=== PATIENT | male | born 1995 | race Caucasian/White ===

== ENCOUNTER 2017-10-19 16:10 | Emergency (ER) | payer MEDICAID, OTHER ==
[~2017-10-19] VITALS: Ht 175.3 cm; Wt 73.6 kg
[~2017-10-19 16:10] MED LIST: METH27 PO; RISP0.5T20 PO; SERO150T PO
[2017-10-19 16:24] VITALS: BP 133/76; PULSE 69; RESP 16; TEMP 98.6; O2SAT 99
--- NOTE | 2017-10-19 16:40 | PD ---
HPI Chief Complaint: Injury Time Seen by Provider: 16:35 Travel History International Travel<30 days: No Contact w/Intl Traveler<30days: No Traveled to known affect area: No History of Present Illness HPI 22-year-old male complains of right hand pain. Patient states that he punched a piece of wood yesterday. Patient states that no foreign body is his right hand. Patient denies any other injury. Patient states the pain is sharp pain localized to the base of the long finger and distal aspect of the right third metacarpal area. Patient denies any pain radiation. Patient states that the pain is worse with movement of the right third finger. Patient states that he is up-to-date with TD booster. On a scale of 1-10 the pain is a 7. Patient has history of fractured right hand fifth metacarpal in the past. PFSH Past Medical History ADD: Yes ADHD: Yes (PT AND SIBLINGS) Arthritis: Yes (HOSPITALIZED A COUPLE OF MONTHS AT 5 YO) Asthma: Yes Bipolar Disorder: Yes Depression: Yes Cancer: No Cardiovascular Problems: Yes (RHEUMATIC FEVER AT 6 YEARS OLD) Developmental Delay: No Diabetes: No Diminished Hearing: No Headaches: Yes (OCCASIONAL HEADACHES) Psychiatric: Yes Immunizations Current: Yes Migraines: No Seizures: No Thyroid Disease: No Ulcer: No Past Surgical History Appendectomy: No Section: No Cholecystectomy: No Other Surgery: Yes (Fluid in his heart. ) Social History Alcohol Use: Yes (TRIED--LAST TIME 4 MONTHS AGO) Tobacco Use: No Substance Use: No Allergies-Medications (Allergen,Severity, Reaction): Coded Allergies: diphenhydramine (Unverified Allergy, Severe, "ANTIHISTAMINES" PER PATIENT , 10/19/17) red dye (Unverified Allergy, Severe, 10/19/17) Reported Meds & Prescriptions Reported Meds & Active Scripts Active Review of Systems General / Constitutional: No: Fever Eyes: No: Visual changes HENT: No: Headaches Cardiovascular: No: Chest Pain or Discomfort Respiratory: No: Shortness of Breath Gastrointestinal: No: Abdominal Pain Genitourinary: No: Dysuria Musculoskeletal: Positive: Pain Skin: No Rash Neurologic: No: Weakness Psychiatric: No: Depression Endocrine: No: Polydipsia Hematologic/Lymphatic: No: Easy Bruising Physical Exam Narrative GENERAL: Well-nourished, well-developed patient. SKIN: Focused skin assessment warm/dry. HEAD: Normocephalic. EYES: No scleral icterus. No injection or drainage. NECK: Supple, trachea midline. No JVD or lymphadenopathy. CARDIOVASCULAR: Regular rate and rhythm without murmurs, gallops, or rubs. RESPIRATORY: Breath sounds equal bilaterally. No accessory muscle use. GASTROINTESTINAL: Abdomen soft, non-tender, nondistended. MUSCULOSKELETAL: Patient has soft tissue swelling tenderness over distal aspect of right third metacarpal and third MCP joint. Active range of motion of the right third finger. Small superficial laceration at the dorsal aspect of the right third MCP joint with a scab over the wound. No active bleeding. Sensory motor function distally intact. BACK: Nontender without obvious deformity. No CVA tenderness. Data Data Last Documented VS Vital Signs Date Time Temp Pulse Resp B/P (MAP) Pulse Ox O2 Delivery O2 Flow Rate FiO2 10/19/17 16:24 98.6 69 16 133/76 (95) 99 Orders Orders Hand, Complete ([id number]) (10/19/17 16:35) Ed Discharge Order (10/19/17 17:00) MDM Medical Decision Making Medical Screen Exam Complete: Yes Emergency Medical Condition: Yes Differential Diagnosis Differential diagnosis including laceration, contusion, fracture, dislocation. Narrative Course 22-year-old male with right hand injury. Diagnosis Primary Impression: Contusion of right hand Qualified Codes: S60.221A - Contusion of right hand, initial encounter Additional Impression: Superficial laceration of right hand Qualified Codes: S61.411A - Laceration without foreign body of right hand, initial encounter Patient Instructions: General Instructions Additional Instructions: Polysporin ointment with Band-Aid daily. Ice elevation. Motrin as needed for pain. Follow-up with personal physician and hand surgeon. Return if increased redness swelling. Med/Other Pt SpecificInfo: Prescription(s) given Scripts Ibuprofen (Ibuprofen) 600 Mg Tab 600 MG PO TID for Pain, #21 TAB 0 Refills Prov: John Webb MD 10/19/17 Cephalexin (Keflex) 500 Mg Capsule 500 MG PO TID for Infection, #15 CAP 0 Refills Prov: John Webb MD 10/19/17 Disposition: 01 DISCHARGE HOME Condition: Stable John Webb MD October 19, 2017 16:40
--- NOTE | 2017-10-19 17:04 | RADRPT ---
EXAM DATE/TIME: 10/19/2017 16:40 [facility] COMPARISON: No previous studies available for comparison. INDICATIONS : Right third metacarpal pain after accidentally punching a piece of wood. MEDICAL HISTORY : Fracture right 5th metacarpal. SURGICAL HISTORY : None. ENCOUNTER: Initial ACUITY: 2 days PAIN SCORE: 4/10 LOCATION: Right hand. FINDINGS: Three view examination of the right hand demonstrates no soft tissue swelling, dislocation, or fractu re. The carpal bones appear intact. The interphalangeal and metacarpophalangeal joints are intact. Bony mineralization is normal. CONCLUSION: Negative for fracture or dislocation. Follow up in 7-10 days is suggested if symptoms persist. Rich Amanda MD FACR on October 19, 2017 at 17:01 Board Certified Radiologist. This report was verified electronically.
[2017-10-19] MEDS ORDERED: CEPH-460 PO (17:05)
[2017-10-19] MEDS ORDERED: IBUP-232 PO (17:05)
== END 2017-10-19 17:15 | disposition home or self-care (01) ==
LOC: PHEFT 16:10
DX: S60.221A Contusion of right hand, initial encounter (principal); S61.411A Laceration without foreign body of right hand, initial encounter; F31.9 Bipolar disorder, unspecified; F90.9 Attention-deficit hyperactivity disorder, unspecified type; J45.909 Unspecified asthma, uncomplicated; W22.8XXA Striking against or struck by other objects, initial encounter
CPT/HCPCS: 73130; 99283